=== PATIENT | male | born 1980 | race Caucasian/White ===

== ENCOUNTER 2023-04-13 19:16 | Emergency (ER) | payer OTHER, SELFPAY ==
[2023-04-13] VITALS (32 sets, daily range): BP systolic 136–183; BP diastolic 87–106; PULSE 80–94; RESP 12–23; TEMP 37.1; O2SAT 89–99
--- NOTE | ~2023-04-13 | XR_ITS ---
EXAMINATION: XR chest 1V portable Exam Date/Time: 04/13/2023 20:40 CDT HISTORY: Chest discomfort Comparison: 04/02/2018. RESULT: Lines, tubes, and devices: None. Lungs and pleura: Clear. Cardiomediastinal silhouette: Stable. Other: No acute osseous or upper abdominal finding. IMPRESSION: No acute cardiopulmonary process. Reviewed, dictated and finalized at location K.
--- NOTE | 2023-04-13 20:32 | ECG_ITS ---
Measurements Intervals [place] Rate: 86 P: 32 SC: 157 QRS: 40 QRSD: 93 T: 39 QT: 337 QTc: 403 Interpretive Statements SINUS RHYTHM NO PREVIOUS ECG AVAILABLE FOR COMPARISON Electronically Signed On 04-14-2023 13:27:43 CDT by Tila Walter M.D.
[2023-04-13] MEDS: FAMOTIDINE 20 MG/2 ML VIAL IV PUSH (20:50)
[2023-04-13] MEDS: ONDANSETRON INJ 4 MG/2 ML VIAL IV PUSH (20:50)
[2023-04-13] MEDS: LORazepam INJ (*CRX) 2 MG/ML VIAL 0.5 MG IV PUSH (20:51)
[2023-04-13] MEDS: SODIUM CHLORIDE 0.9% IV 2,000 ML 999 ML IV CONT (20:51)
[2023-04-13 20:52] LABS: Basophils Absolute Auto 0.1 K/mm3 (0.0-0.1); Basophils Percent Auto 0.7 % (0.2-1.2); Eosinophils Absolute Auto 0.1 K/mm3 (0-0.3); Eosinophils Percent Auto 1.2 % (0-4.4); Hematocrit 56.7 % (42.0-52.0); Hemoglobin 18.5 g/dL (14.0-18.0); Immature Granulocyte Absolute 0.03 K/mm3 (0.00-0.031); Immature Granulocyte Percent A 0.4 % (0-0.5); Lymphocytes Absolute Auto 1.92 K/mm3 (0.9-3.2); Lymphocytes Percent Auto 23.1 % (18.3-44.2); Mean Corpuscular HGB Conc 32.6 g/dl (32-36); Mean Corpuscular Hemoglobin 26.7 pg (26-34); Mean Corpuscular Volume 81.9 fl (80-100); Mean Platelet Volume 10.8 fl (7.4-10.4); Monocytes Absolute Auto 0.7 K/mm3 (0.1-0.6); Monocytes Percent Auto 7.8 % (2.6-8.5); Neutrophils Absolute Auto 5.6 K/mm3 (1.3-6.7); Neutrophils Percent Auto 66.8 % (45.5-73.1); Platelet Count Result 200 k/mm3 (150-375); Red Blood Count 6.92 M/mm3 (4.6-6.20); Red Cell Distribution Width 15.7 % (11.5-14.5); White Blood Count 8.3 K/mm3 (4.5-10.0)
[2023-04-13 21:11] LABS: Appearance Urine Clear (Clear); Bilirubin Urine Negative (Negative); Blood Urine Negative (Negative); Color Urine Yellow (Yellow); Glucose Urine UA Negative (Negative); Ketones Urine Negative (Negative); Leukocyte Esterase Ur Negative LEU/UL (Negative); Nitrate Urine Negative (Negative); Protein Urine Negative (Negative); Specific Grav Ur 1.004 (1.001-1.035); Urobilinogen Urine 0.2 mg/dL (<2.0); pH Urine 6.5 (5.0-9.0)
[2023-04-13 21:15] LABS: Add Urine Microscopic? NO
[2023-04-13 21:32] LABS: Alanine Aminotransferase 32 U/L (6-50); Albumin Level 4.3 g/dL (3.5-5.1); Alkaline Phosphatase 73 U/L (38-126); Anion Gap 4 mmol/L (8-16); Aspartate Amino Transferase 33 U/L (17-59); Bilirubin,Total 0.6 mg/dL (0.2-1.3); Blood Urea Nitrogen 14 mg/dL (9-20); Calcium 8.5 mg/dL (8.4-10.2); Carbon Dioxide 30 mmol/L (22-30); Chloride 103 mmol/L (98-107); Estimated CRCL calculation 100 ml/min; Estimated Glomerular Filt Rate > 60; Glucose 115 mg/dL (65-110); Lipase 64 U/L (23-300); Magnesium 2.2 mg/dL (1.6-2.3); Sodium 137 mmol/L (137-145)
[2023-04-13 21:43] LABS: Troponin I < 0.012 ng/mL (0.000-0.034)
[2023-04-13 22:33] LABS: Influenza A QL RT-PCR Negative (Negative); Influenza B QL RT-PCR Negative (Negative); RSV RNA, RT-PCR Negative (Negative); SARS-CoV-2 RNA PCR Negative (Negative)
--- NOTE | 2023-04-13 23:15 | PC.NURSE ---
This RN assumed care of pt.
[2023-04-13 23:41] LABS: Troponin I < 0.012 ng/mL (0.000-0.034)
[2023-04-14 00:01] VITALS: BP 146/93; PULSE 82; RESP 16; O2SAT 94
--- NOTE | 2023-04-14 00:17 | ED.GENADULT ---
HPI - General Adult General Chief complaint: Recheck/Abnormal Lab/Rx Stated complaint: high blood pressure Time Seen by Provider: 04/13/23 19:57 History of Present Illness HPI narrative: This is a pleasant 43-year-old male with history of anxiety presenting ED with chief complaint of elevated blood pressures. Patient states he has not felt well throughout the day. 5:00 p.m. he started have a little bit of pressure in the epigastric area it is nonradiating, 2/10 intensity constant. He said he experiences 6 years ago and went to a hospital and received entire cardiac workup and was told that he had vasovagal Symptoms. There are no exacerbating or alleviating factors. He said that he did become sweaty with this happen in assisted associated with significant anxiety but no exertional component or vomiting. No fever chills productive cough or lower extremity edema. No diarrhea. No sick contacts at home. Related Data Home Medications Medication Instructions Recorded Confirmed ascorbic acid (vitamin C) 500 mg mg PO 06/06/22 12/17/22 capsule aspirin 81 mg tablet,delayed 81 mg PO DAILY 06/06/22 12/17/22 release cholecalciferol (vitamin D3) 50 50 mcg PO DAILY 06/06/22 12/17/22 mcg (2,000 unit) capsule mecobalamin (vitamin B12) 1,000 1,000 mcg PO DAILY 06/06/22 12/17/22 mcg chewable tablet testosterone cypionate 200 mg/mL 0.75 mg IM WEEKLY 06/06/22 12/17/22 intramuscular oil (Depo-Testosterone) Allergies Allergy/AdvReac Type Severity Reaction Status Date / Time No Known Allergies Allergy Verified 12/17/22 11:44 [facility] Family History Family History Grandparent Diabetes mellitus Hypertension Family history of cardiovascular disease Family history of malignant neoplasm Father Depression Hypertension Family history of elevated blood lipids Family history of cardiovascular disease Mother Family history of allergic disorder Sibling Family history of allergic disorder Social History Social History Smoking status: Never smoker Alcohol intake: current Lack of Transportation: No Lack of Food: Never True Current Housing: Decline to Answer Concerned About Future Housing: Decline to Answer Difficulty Paying Gas/Electric Bills: Decline to Answer Difficulty Paying for Meds: Decline to Answer Currently Unemployed: Decline to Answer Education: Decline to Answer Difficulty w/ Childcare or Family Care: Decline to Answer Exam Narrative: APPEARANCE: No apparent distress. Head: atraumatic. EYES: EOMI, NOSE: Atraumatic NECK: Trachea midline RESPIRATORY: No increased rate of breathing clear to auscultation CARDIOVASCULAR: RRR, no peripheral edema ABDOMINAL: Non-distended soft nontender no guarding or rebound MUSCULOSKELETAl: No obvious deformities NEURO: Alert. Moving 4/4 extremities SKIN:: Warm, dry. Normal color PSYCHIATRIC: anxious Course Vital Signs Vital signs: Vital Signs Temperature 98.7 F 04/13/23 19:21 Pulse Rate 85 04/13/23 19:21 Respiratory Rate 18 04/13/23 19:21 Blood Pressure 156/88 H 04/13/23 19:21 Pulse Oximetry 99 04/13/23 19:21 Oxygen Delivery Room Air 04/13/23 19:21 Temperature 98.7 F 04/13/23 19:21 Pulse Rate 82 04/14/23 00:01 Respiratory Rate 16 04/14/23 00:01 Blood Pressure 146/93 H 04/14/23 00:01 Pulse Oximetry 94 04/14/23 00:01 Oxygen Delivery Room Air 04/13/23 19:21 Medical Decision Making [facility] Narrative Medical decision making narrative: -Presentation: 43-year-old male presenting with a vague complaint of not feeling well and concerns about his blood pressure. screening lab work, EKG chest x-ray and cardiac labs have been ordered. Patient's has been given 2 L of fluid, zofran and 0.5 of Ativan. -DDX includes but is not limited to: anxiety, hypertension, heart attack, indigestion
== END 2023-04-14 00:49 | disposition home or self-care (01) ==
PROVIDERS: Emergency Provider Emergency Medicine; PCP Physician Assistant
DX: R10.13 Epigastric pain (principal); Z20.822 Contact with and (suspected) exposure to COVID-19
CPT/HCPCS: 36415; 71045; 80053; 81003; 83690; 83735; 84484; 85025; 87637; 93005; 96361; 96374; 96375; 99284; J2060; J2405; J7030

== ENCOUNTER 2023-11-11 13:00 | Outpatient (CLI) | payer OTHER, SELFPAY ==
--- NOTE | ~2023-11-11 | US_ITS ---
US scrotum doppler INDICATION: Left testicular pain TECHNIQUE: Testicular sonogram utilizing grayscale and color Doppler FINDINGS: The testes are normal in size and appearance. No focal lesions are seen. The right testes measures 4.2 x 1.9 x 2.3 cm centimeters, and the left testis measures 3.4 x 2 x 2.1 cm cm. There is n ormal vascular flow to both testes. The right epididymis is unremarkable. The left epididymis appears enlarged and hypervascular. There is a left varicocele. IMPRESSION: 1. Enlarged hypervascular left epididymis, consistent with epididymitis. 2: Left varicocele. Reviewed, dictated and finalized at location B. [employer]
[2023-11-11 16:33] LABS: Chlamydia trachomatis NOT DETECTED (NOT DETECTE); Neisseria gonorrhoeae PCR NOT DETECTED (NOT DETECTE)
== END 2023-11-11 13:01 | disposition home or self-care (01) ==
PROVIDERS: PCP Family Medicine; Visit Provider Family Medicine
DX: N50.812 Left testicular pain (principal); N50.89 Other specified disorders of the male genital organs; I86.1 Scrotal varices
CPT/HCPCS: 76870; 87491; 87591; 93976